=== PATIENT | female | born 1970 | race American Indian/Alaskan Native ===

== ENCOUNTER 2017-07-10 12:37 | Emergency (ER) | payer SELFPAY ==
[2017-07-10] MEDS ORDERED: Albuterol/Ipratropium 3.0-0.5 MG/3 ML Neb Soln ONE (12:42)
[2017-07-10] MEDS ORDERED: Lidocaine 2% Viscous Solution 15 ML Cup PO ONE (12:49)
[2017-07-10] MEDS ORDERED: Ketorolac 30 MG/ML SDV IVPUSH ONE (12:49)
[2017-07-10] MEDS ORDERED: Sodium Chloride 0.9% 2.5 ML Syringe FLUSH PRN (12:49)
[2017-07-10] MEDS ORDERED: Sodium Chloride 0.9% 10 ML Syringe FLUSH PRN (12:49)
[2017-07-10] MEDS ORDERED: Sodium Chloride 0.9% 1,000 ML IV ONE (12:49)
--- NOTE | 2017-07-10 12:52 | EDM.PDOC ---
ED HPI GENERAL MEDICAL PROBLEM - General Chief Complaint: Respiratory Problem Stated Complaint: POSSIBLE ASTHMA ATTACK Time Seen by Provider: 07/10/17 12:42 - History of Present Illness INITIAL COMMENTS - FREE TEXT/NARRATIVE: HISTORY AND PHYSICAL: History of present illness: The patient is a 46-year-old female who states she has no pulmonary disease or history and presents with an at least 4 month history of ear pain that progressed to horse throat throat pain cough congestion and feeling short of breath. She said that she had similar symptoms and was "sick" for 8 months last year. She says that she was given amoxicillin and doxycycline on 2 visits to local clinics but has no regular provider and she says she did not finish those antibiotics nor does she know what they were treating. She comes and presents to triage very dramatic concerned that she might be having a "asthma attack" although she has no history of that. At my current evaluation she is having difficulty focusing on questions but does state that she smokes cigarettes and has no pre-existing problems. She said she has had fevers but has not documented them and she has had trouble eating and drinking due to coughing feeling short of breath throat pain. She also states that over the last few days she's developed some sores on her lips which she says she's never had. I will re-question her after some interventions here in the ED. Review of systems: As per history of present illness and below otherwise all systems reviewed and negative. Past medical history: As per history of present illness and as reviewed below otherwise noncontributory. Surgical history: As per history of present illness and as reviewed below otherwise noncontributory. Social history: No reported history of drug or alcohol abuse. Family history: As per history of present illness and as reviewed below otherwise noncontributory. Physical exam: General: Well-developed well-nourished female who is nontoxic and speaks with a hoarse voice but has visibly no moisture on her lips and is very exaggerated with all of my exam and questions. She is interactive and tries to be cooperative. Vital signs been reviewed by me. HEENT: Atraumatic, normocephalic, pupils reactive, negative for conjunctival pallor or scleral icterus, mucous membranes incredibly dry throughout including the hard and soft palate and the uvula, throat clear, neck supple, nontender, trachea midline. The patient has anterior cervical adenopathy which is tender but there is no posterior adenopathy and no nuchal rigidity or sinus tenderness. On the outer lips at the corner on the right as well as several other locations there are small vesicles seen and there is some beefy redness of the gingiva but there is no swelling of the lips or tongue Lungs: Clear to auscultation, breath sounds equal bilaterally, chest nontender. The patient has no stridor or wheezing and has diminished breath sounds in the bases and some exaggerated work of breathing but no sensory muscle use. Heart: S1S2, regular rate and rhythm no overt murmurs Abdomen: Soft, nondistended, nontender. NABS Negative for costovertebral tenderness. Skin: Normal turgor no evidence of any rashes or lesions are seen Genitourinary: Deferred. Rectal: Deferred. Extremities: Atraumatic, negative for cords or calf pain. Neurovascular unremarkable. Neuro: Awake, alert, oriented. Cranial nerves II through XII unremarkable. Cerebellum unremarkable. Motor and sensory unremarkable throughout. Exam nonfocal. Diagnostics: CBC CMP lactic acid blood cultures Monospot UA rapid strep influenza swab soft tissue neck chest x-ray CT scan of the soft tissue neck Therapeutics: IV fluids Toradol viscous lidocaine 1455: Patient was noted by nursing sleeping in the room without any distress and when I went to reevaluate her she is saying that she feels significantly better and has much more moist oral mucosa. She is telling me that her symptoms started 4 months ago to 5 months ago and the hoarseness that I'm hearing in her voice has been ongoing for 3 months. She says it is actually better than it was last month. She says that she does have pain when she swallows and that has been ongoing for several months as well. She denies any abdominal pain or vomiting no diarrhea and has no chest pain or shortness of breath currently. She still has clear breath sounds with diminished breath sounds at the bases. She is currently on her second liter of fluid. As she is incredibly hoarse despite the negative soft tissue neck x-ray I will do a CT scan of her soft tissue neck. I will consider interventions/treatment at that time such as antibiotics or steroids. I reexamined her mouth and she does have a dental Natalie at tooth #27 with some surrounding gum swelling requiring some antibiotics and the lesions that I'm seeing on her lips do not extend to the buccal mucosa tongue hard or soft palate. 1650: Patient was asleep and I woke her up to discuss her testing results and that she will be discharged home. I will give her amoxicillin for her tooth and will give her some Magic mouthwash to assist with her mouth pain and sores. I will advise her to get repeat liver function tests done in the clinic sometime next week when she follows up and I've strongly advised her to hydrate with fluids avoid caffeinated products and stopped using methamphetamine. Impression: Dyspnea, odynophagia, oral pain, dental caries, dehydration, methamphetamine use Definitive disposition and diagnosis as appropriate pending reevaluation and review of above. - Related Data Allergies Allergy/AdvReac Type Severity Reaction Status Date / Time No Known Allergies Allergy Verified 07/10/17 12:42 Home Meds: Home Meds . [No Known Home Meds] 07/10/17 [History] ED ROS GENERAL - Review of Systems Review Of Systems: ROS reveals no pertinent complaints other than HPI. ED EXAM, GENERAL - Physical Exam Exam: See Below (See dictation) Course - Vital Signs Last Recorded V/S: Last Vital Signs Temp 36.7 C 07/10/17 12:48 Pulse 92 07/10/17 12:48 Resp 18 07/10/17 12:48 BP 134/77 07/10/17 12:48 Pulse Ox 98 07/10/17 15:13 - Orders/Labs/Meds Orders: Active Orders 24 hr Category Date Time Status Oxygen Therapy, ED [RC] ASDIRECTED Care 07/10/17 12:47 Active Pulse Oximetry [RC] ASDIRECTED Care 07/10/17 12:47 Active CULTURE BLOOD [BC] Stat Lab 07/10/17 13:00 Received CULTURE BLOOD [BC] Stat Lab 07/10/17 13:12 Received CULTURE STREP A CONFIRMATION [] Stat Lab 07/10/17 13:22 Results STREP SCRN A RAPID W CULT CONF [] Stat Lab 07/10/17 13:22 Results Sodium Chloride 0.9% [Saline Flush] Med 07/10/17 12:49 Active 10 ml FLUSH ASDIRECTED PRN Sodium Chloride 0.9% [Saline Flush] Med 07/10/17 12:49 Active 2.5 ml FLUSH ASDIRECTED PRN Blood Culture x2 Reflex Set [OM.PC] Stat Ot 07/10/17 12:50 Ordered Saline Lock Insert [OM.PC] Stat Ot 07/10/17 12:47 Ordered Medication Orders Sodium Chloride (Saline Flush) 10 ml FLUSH ASDIRECTED PRN PRN Reason: Keep Vein Open Sodium Chloride (Saline Flush) 2.5 ml FLUSH ASDIRECTED PRN PRN Reason: Keep Vein Open Labs: Laboratory Tests 07/10/17 07/10/17 07/10/17 Range/Units 13:00 13:00 13:00 WBC 6.67 (4.0-11.0) K/uL RBC 4.00 L (4.30-5.90) M/uL Hgb 12.6 (12.0-16.0) g/dL Hct 36.7 (36.0-46.0) % MCV 91.8 (80.0-98.0) fL MCH 31.5 (27.0-32.0) pg MCHC 34.3 (31.0-37.0) g/dL RDW Std Deviation 46.8 (28.0-62.0) fl RDW Coeff of Brett 14 (11.0-15.0) % Plt Count 104 L (150-400) K/uL MPV 10.10 (7.40-12.00) fL Neut % (Auto) 60.4 (48.0-80.0) % Lymph % (Auto) 27.7 (16.0-40.0) % [place] % (Auto) 8.1 (0.0-15.0) % Eos % (Auto) 3.4 (0.0-7.0) % Baso % (Auto) 0.4 (0.0-1.5) % Neut # (Auto) 4.0 (1.4-5.7) K/uL Lymph # (Auto) 1.9 (0.6-2.4) K/uL [place] # (Auto) 0.5 (0.0-0.8) K/uL Eos # (Auto) 0.2 (0.0-0.7) K/uL Baso # (Auto) 0.0 (0.0-0.1) K/uL Nucleated RBC % 0.0 /100WBC Nucleated RBCs # 0 K/uL Lactate 1.3 (0.20-2.00) mmol/L Sodium 143 (136-146) mmol/L Potassium 3.3 L (3.5-5.1) mmol/L Chloride 111 H (98-110) mmol/L Carbon Dioxide 21 (21-31) mmol/L BUN 13 (6.0-23.0) mg/dL Creatinine 0.8 (0.6-1.5) mg/dL Est Cr Clr Drug Dosing 76.68 mL/min Estimated GFR (MDRD) > 60.0 ml/min Glucose 102 (60-110) mg/dL Calcium 8.9 (8.8-10.8) mg/dL Total Bilirubin 1.3 (0.1-1.5) mg/dL AST 165 H (5-40) IU/L ALT 115 H (8-54) IU/L Alkaline Phosphatase 131 (40-150) Total Protein 7.8 (6.0-8.0) g/dL Albumin 3.3 L (3.5-5.0) g/dL Globulin 4.5 H (2.0-3.5) g/dL Albumin/Globulin Ratio 0.7 L (1.3-2.8) Urine Color Urine Appearance Urine pH (5.0-8.0) Ur Specific [place] (1.001-1.035) Urine Protein (NEGATIVE) mg/dL Urine Glucose (UA) (NEGATIVE) mg/dL Urine Ketones (NEGATIVE) mg/dL Urine Occult Blood (NEGATIVE) Urine Nitrite (NEGATIVE) Urine Bilirubin (NEGATIVE) Urine Ictotest Urine Urobilinogen (<2.0) EU/dL Ur Leukocyte Esterase (NEGATIVE) Urine RBC (0-2/HPF) Urine WBC (0-5/HPF) Ur Epithelial Cells (NONE-FEW) Calcium Oxalate Crystal (NEGATIVE) Amorphous Sediment (NEGATIVE) Urine Bacteria (NEGATIVE) Urine Mucus (NONE-MOD) Urine Opiates Screen (NEGATIVE) Ur Oxycodone Screen (NEGATIVE) Urine Methadone Screen (NEGATIVE) Ur Barbiturates Screen (NEGATIVE) Ur Phencyclidine Scrn (NEGATIVE) Ur Amphetamine Screen (NEGATIVE) U Methamphetamines Scrn (NEGATIVE) U Benzodiazepines Scrn (NEGATIVE) U Cocaine Metab Screen (NEGATIVE) U Marijuana (THC) Screen (NEGATIVE) Monoscreen (NEG) 09/13/17 09/13/17 09/13/17 Range/Units 13:00 15:02 15:02 WBC (4.0-11.0) K/uL RBC (4.30-5.90) M/uL Hgb (12.0-16.0) g/dL Hct (36.0-46.0) % MCV (80.0-98.0) fL MCH (27.0-32.0) pg MCHC (31.0-37.0) g/dL RDW Std Deviation (28.0-62.0) fl RDW Coeff of Brett (11.0-15.0) % Plt Count (150-400) K/uL MPV (7.40-12.00) fL Neut % (Auto) (48.0-80.0) % Lymph % (Auto) (16.0-40.0) % [place] % (Auto) (0.0-15.0) % Eos % (Auto) (0.0-7.0) % Baso % (Auto) (0.0-1.5) % Neut # (Auto) (1.4-5.7) K/uL Lymph # (Auto) (0.6-2.4) K/uL [place] # (Auto) (0.0-0.8) K/uL Eos # (Auto) (0.0-0.7) K/uL Baso # (Auto) (0.0-0.1) K/uL Nucleated RBC % /100WBC Nucleated RBCs # K/uL Lactate (0.20-2.00) mmol/L Sodium (136-146) mmol/L Potassium (3.5-5.1) mmol/L Chloride (98-110) mmol/L Carbon Dioxide (21-31) mmol/L BUN (6.0-23.0) mg/dL Creatinine (0.6-1.5) mg/dL Est Cr Clr Drug Dosing mL/min Estimated GFR (MDRD) ml/min Glucose (60-110) mg/dL Calcium (8.8-10.8) mg/dL Total Bilirubin (0.1-1.5) mg/dL AST (5-40) IU/L ALT (8-54) IU/L Alkaline Phosphatase (40-150) Total Protein (6.0-8.0) g/dL Albumin (3.5-5.0) g/dL Globulin (2.0-3.5) g/dL Albumin/Globulin Ratio (1.3-2.8) Urine Color DARK YELLOW Urine Appearance SLT CLOUDY Urine pH 5.5 (5.0-8.0) Ur Specific [place] >= 1.030 (1.001-1.035) Urine Protein TRACE (NEGATIVE) mg/dL Urine Glucose (UA) NEGATIVE (NEGATIVE) mg/dL Urine Ketones TRACE H (NEGATIVE) mg/dL Urine Occult Blood TRACE-LYSED (NEGATIVE) Urine Nitrite NEGATIVE (NEGATIVE) Urine Bilirubin SMALL H (NEGATIVE) Urine Ictotest NEGATIVE Urine Urobilinogen 1.0 (<2.0) EU/dL Ur Leukocyte Esterase SMALL (NEGATIVE) Urine RBC 0-1 (0-2/HPF) Urine WBC 1-2 (0-5/HPF) Ur Epithelial Cells FEW (NONE-FEW) Calcium Oxalate Crystal MODERATE (NEGATIVE) Amorphous Sediment LIGHT (NEGATIVE) Urine Bacteria RARE (NEGATIVE) Urine Mucus LIGHT (NONE-MOD) Urine Opiates Screen NEGATIVE (NEGATIVE) Ur Oxycodone Screen NEGATIVE (NEGATIVE) Urine Methadone Screen NEGATIVE (NEGATIVE) Ur Barbiturates Screen NEGATIVE (NEGATIVE) Ur Phencyclidine Scrn NEGATIVE (NEGATIVE) Ur Amphetamine Screen POSITIVE (NEGATIVE) U Methamphetamines Scrn POSITIVE (NEGATIVE) U Benzodiazepines Scrn NEGATIVE (NEGATIVE) U Cocaine Metab Screen NEGATIVE (NEGATIVE) U Marijuana (THC) Screen NEGATIVE (NEGATIVE) Monoscreen NEGATIVE (NEG) Meds: Medications Generic Name Dose Route Start Last Admin Trade Name Freq PRN Reason Stop Dose Admin Sodium Chloride 10 ml 07/10/17 12:49 Saline Flush FLUSH ASDIRECTED PRN Keep Vein Open Sodium Chloride 2.5 ml 07/10/17 12:49 Saline Flush FLUSH ASDIRECTED PRN Keep Vein Open Discontinued Medications Generic Name Dose Route Start Last Admin Trade Name Freq PRN Reason Stop Dose Admin Albuterol/Ipratropium Confirm 07/10/17 12:42 07/10/17 12:48 Duoneb 3.0-0.5 Mg/3 Ml Administered 07/10/17 12:43 3 ml Dose Administration 3 ml .ROUTE .STK-MED ONE Sodium Chloride 1,000 mls @ 999 mls/hr 07/10/17 12:49 07/10/17 13:17 Normal Saline IV 07/10/17 13:49 999 mls/hr STAT ONE Administration Sodium Chloride 1,000 mls @ 999 mls/hr 07/10/17 14:42 07/10/17 14:43 Normal Saline IV 07/10/17 15:42 999 mls/hr NOW STA Administration Iopamidol 80 ml 07/10/17 16:37 07/10/17 16:38 Isovue Multipack-370 (76%) IVPUSH 07/10/17 16:38 80 ml ONETIME STA Administration Ketorolac Tromethamine 30 mg 07/10/17 12:49 07/10/17 13:15 Toradol IVPUSH 07/10/17 12:50 30 mg ONETIME ONE Administration Lidocaine HCl 15 ml 07/10/17 12:49 07/10/17 13:11 Xylocaine 2% Viscous PO 07/10/17 12:50 15 ml ONETIME ONE Administration Departure - Departure Time of Disposition: 17:02 Disposition: Home, Self-Care 01 Condition: Good Clinical Impression: Methamphetamine use, Dehydration, Oral pain, Dental infection Dyspnea, unspecified Qualifiers: Dyspnea type: unspecified Qualified Code(s): R06.00 - Dyspnea, unspecified - Discharge Information Referrals: PCP,None [Primary Care Provider] - Forms: ED Department Discharge Additional Instructions: The following information is given to patients seen in the emergency department who are being discharged to home. This information is to outline your options for follow-up care. We provide all patients seen in our emergency department with a follow-up referral. The need for follow-up, as well as the timing and circumstances, are variable depending upon the specifics of your emergency department visit. If you don't have a primary care physician on staff, we will provide you with a referral. We always advise you to contact your personal physician following an emergency department visit to inform them of the circumstance of the visit and for follow-up with them and/or the need for any referrals to a consulting specialist. The emergency department will also refer you to a specialist when appropriate. This referral assures that you have the opportunity for followup care with a specialist. All of these measure are taken in an effort to provide you with optimal care, which includes your followup. Under all circumstances we always encourage you to contact your private physician who remains a resource for coordinating your care. When calling for followup care, please make the office aware that this follow-up is from your recent emergency room visit. If for any reason you are refused follow-up, please contact the [facility] emergency department at and ask to speak to the emergency department charge nurse. [facility] Primary care- Internal Medicine and Family [facility] [address] [place] [id number] [facility] Specialty Care - ENT [address] [place] [id number] Please push hydration as we discussed and avoid caffeinated products. Take the amoxicillin you have been prescribed for you to the infection and use the Magic mouthwash to assist with your oral sores and pain. Please stop using methamphetamine as this is contributing to all of your other symptoms. Please call and follow-up in our clinic using resources given to above and avoid alcohol. Please have your liver function tests retested when you go to the clinic to show improvement and please also call and follow-up with our ENT physician for further evaluation and care of your coarse voice that's been ongoing for 3 months. Return to ER as needed and as discussed - My Orders Last 24 Hours: My Active Orders 07/10/17 12:47 Oxygen Therapy, ED [RC] ASDIRECTED Pulse Oximetry [RC] ASDIRECTED Saline Lock Insert [OM.PC] Stat 07/10/17 12:49 Sodium Chloride 0.9% [Saline Flush] 10 ml FLUSH ASDIRECTED PRN Sodium Chloride 0.9% [Saline Flush] 2.5 ml FLUSH ASDIRECTED PRN 07/10/17 12:50 Blood Culture x2 Reflex Set [OM.PC] Stat 07/10/17 13:00 CULTURE BLOOD [BC] Stat 07/10/17 13:12 CULTURE BLOOD [BC] Stat 07/10/17 13:22 CULTURE STREP A CONFIRMATION [RM] Stat STREP SCRN A RAPID W CULT CONF [RM] Stat - Assessment/Plan Last 24 Hours: My Active Orders 07/10/17 12:47 Oxygen Therapy, ED [RC] ASDIRECTED Pulse Oximetry [RC] ASDIRECTED Saline Lock Insert [OM.PC] Stat 07/10/17 12:49 Sodium Chloride 0.9% [Saline Flush] 10 ml FLUSH ASDIRECTED PRN Sodium Chloride 0.9% [Saline Flush] 2.5 ml FLUSH ASDIRECTED PRN 07/10/17 12:50 Blood Culture x2 Reflex Set [OM.PC] Stat 07/10/17 13:00 CULTURE BLOOD [BC] Stat 07/10/17 13:12 CULTURE BLOOD [BC] Stat 07/10/17 13:22 CULTURE STREP A CONFIRMATION [RM] Stat STREP SCRN A RAPID W CULT CONF [RM] Stat
[2017-07-10 13:46] LABS: CHLORIDE,CL 111 mmol/L (98-110); SODIUM,NA 143 mmol/L (136-146)
--- NOTE | 2017-07-10 14:36 | CR ---
EXAMINATION: Two-view chest (PA and Lateral views). HISTORY: Shortness of breath. FINDINGS: The trachea is midline. The cardiomediastinal silhouette is within normal limits. No pulmonary infilt rates, effusions or pneumothorax. Osseous structures appear unremarkable. IMPRESSION: No acute cardiopulmonary process.
[2017-07-10] MEDS ORDERED: Sodium Chloride 0.9% 1,000 ML IV STA (14:42)
--- NOTE | 2017-07-10 14:42 | CR ---
EXAMINATION: Soft tissue neck HISTORY: Pain COMPARISON: None TECHNIQUE: AP and lateral views FINDINGS: The prevertebral soft tissues are normal. Epiglottis is unremarkable. The upper trachea josafat ears normal, no subglottic narrowing. Degenerative changes and marginal osteophytes noted within the lower cervical spine. Bone mineralization is otherwise normal. IMPRESSION: Unremarkable soft tissue neck.
[2017-07-10] MEDS ORDERED: Iopamidol 755 MG/ML 500 ML Multipack Bottle IVPUSH STA (16:37)
--- NOTE | 2017-07-10 16:42 | CT ---
EXAMINATION: CT soft tissue neck with contrast HISTORY: Hoarse voice COMPARISON: None TECHNIQUE: Axial CT images obtained through the neck following the administration of 80 mL of Isovue- 370 in the left hand. Coronal and sagittal reconstructions obtained. There is poor bolus timing and m oderate motion noted within the mid aspect of the neck. FINDINGS: The naso and oropharyngeal mucosal structures are grossly symmetric. The hypopharynx appear s unremarkable. Motion artifact obscures evaluation of the glottis and larynx. The upper trachea appe ars grossly normal. There are a few borderline level 1 and level 2 lymph nodes bilaterally measuring up to 9 mm in the short axis. Trace carotid artery calcifications are present. The parotid and subman dibular glands appear grossly symmetric. The visualized paranasal sinuses are clear mastoid air cells are also clear. The orbits and globes are grossly symmetric. The lung apices are grossly clear however moderate motion artifact is noted. Degenerative changes are noted within the cervical spine. IMPRESSION: 1. No definite acute findings within the neck however moderate motion artifact obscures detail. 2. Borderline cervical chain lymph nodes measuring up to 9 mm, likely reactive.
[2017-07-10 17:30] VITALS: BP 147/100
== END 2017-07-10 17:28 | disposition home or self-care (01) ==
LOC: MW.ED 12:37
DX: R06.00 Dyspnea, unspecified (principal); K04.7 Periapical abscess without sinus; K02.9 Dental caries, unspecified; E86.0 Dehydration; R13.10 Dysphagia, unspecified; F15.90 Other stimulant use, unspecified, uncomplicated
CPT/HCPCS: 36415; 70360; 70491; 71020; 80053; 80305; 81001; 83605; 85025; 86308; 87040; 87081; 87804; 87880; 94664; 96361; 96374; 99285; A9270; J1885; J7040; Q9967; 99284